=== PATIENT | female | born 1980 | race Caucasian/White ===

== ENCOUNTER 2020-01-22 17:01 | Emergency (ER) | payer OTHER ==
[~2020-01-22] VITALS: Ht 144.8 cm; Wt 50.0 kg
[2020-01-22] MEDS ORDERED: SODIUM CHLORIDE 0.9% 1,000 ML IV ONE (18:00)
[2020-01-22] MEDS ORDERED: LORAZEPAM 0.5MG TABLET PO ONE (18:00)
[2020-01-22 18:23] LABS: BASOPHILS % 0.9 % (0.0-2.0); EOSINOPHILS % 1.1 % (0.0-5.0); HEMATOCRIT. 28.8 % (36.0-48.0); HEMOGLOBIN. 9.9 g/dL (12.0-16.0); LYMPHOCYTES % 21.4 % (20.0-50.0); MEAN CORPUSCULAR HEMOGLOBIN 26.5 pg (28.0-32.0); MEAN CORPUSCULAR VOLUME 77.1 fL (81.0-99.0); MEAN PLATELET VOLUME 6.7 fl (7.4-10.4); MONOCYTES % 7.6 % (2.0-8.0); PLATELET 261 x1000/uL (130-400); RED BLOOD CELL COUNT 3.73 mill/uL (4.2-5.4); RED CELL DISTRIBUTION WIDTH 17.4 % (11.6-14.6)
[2020-01-22 18:28] LABS: CHLORIDE 102 mEq/L (98-107)
[2020-01-22 19:16] VITALS: BP 105/65
== END 2020-01-22 19:54 | disposition home or self-care (01) ==
LOC: ER 17:01
DX: F41.1 Generalized anxiety disorder (principal); F43.22 Adjustment disorder with anxiety; D50.9 Iron deficiency anemia, unspecified
CPT/HCPCS: 36415; 80053; 83690; 84484; 85025; 93005; 99284; J7030; Z7610